=== PATIENT | male | born 1975 | race Caucasian/White ===

== ENCOUNTER 2020-04-12 17:29 | Emergency (ER) | payer OTHER, SELFPAY ==
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
[2020-04-12 17:44] VITALS: BP 118/76; PULSE 86; RESP 18; TEMP 36.6; O2SAT 100
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
== END 2020-04-12 18:50 | disposition home or self-care (01) ==
PROVIDERS: Emergency Provider Nurse Practitioner
DX: M54.2 Cervicalgia (principal); M54.5 Low back pain; Q22.5 Ebstein's anomaly
CPT/HCPCS: 72050; 72100; 99213; G0463

== ENCOUNTER 2020-07-11 10:25 | Emergency (ER) | payer OTHER, SELFPAY ==
[2020-07-11 10:33] VITALS: BP 98/66; PULSE 80; RESP 18; TEMP 36; O2SAT 100
--- NOTE | 2020-07-11 10:52 | ED.SKABFB ---
HPI - Skin/Abscess/Foreign Bdy General Chief complaint: Skin/Abscess/Foreign Body Stated complaint: rash on left arm Source: patient Mode of arrival: ambulatory Limitations: no limitations History of Present Illness HPI narrative: Patient is a 44-year-old male who presents with pruritic rash to the left arm x2 days. 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 He reports increased itching over the past day reports it seems to be spreading . MD complaint: rash Related Data Home Medications Medication Instructions Recorded Confirmed cetirizine [Zyrtec] 10 mg PO DAILY 04/12/20 07/11/20 lisinopril 2.5 mg PO DAILY 04/12/20 07/11/20 Medicinal Marijuana 07/11/20 Allergies Allergy/AdvReac Type Severity Reaction Status Date / Time acetaminophen Allergy Unknown Itching Verified 07/11/20 10:42 oxycodone Allergy Unknown Itching Verified 07/11/20 10:42 hydrocodone [From Vicodin] AdvReac Itching Verified 07/11/20 10:42 Animal Dander Allergy Mild NASAL Uncoded 12/06/18 19:50 CONGESTION Review of Systems Review of Systems: Narrative: CONSTITUTIONAL: Denies fever, chills, or sweats. EYES: Denies visual changes, redness, or discharge. ENT: Denies rhinorrhea, congestion, sore throat, or otalgia. CARDIOVASCULAR: Denies chest pain, palpitations, or edema. RESPIRATORY: Denies cough or dyspnea. GASTROINTESTINAL: Denies abdominal pain, nausea, vomiting, or diarrhea. GENITOURINARY: Denies dysuria or hematuria. SKIN: Pruritic rash to left arm MUSCULOSKELETAL: Denies back pain, joint pain, or myalgia. NEUROLOGIC: Denies headache, numbness, dizziness, or weakness. PSYCHIATRIC: Denies anxiety or depression. [facility] Past Medical History Medical History (Updated 07/11/20 @ 11:01 by ALVIN Shipman) Anxiety Depression Heart enlarged estein's anomaly PTSD (post-traumatic stress disorder) Seasonal allergies Social History Social History (Updated 07/11/20 @ 10:57 by ALVIN Shipman) Smoking status: Current every day smoker Tobacco type: cigarettes Alcohol intake: never Exam Narrative: Exam Narrative: GENERAL: Well-appearing, well-nourished, and in no acute distress. HEAD: Normocephalic, atraumatic. EYES: No redness or drainage. ENT: Mucous membranes pink and moist. CHEST: No respiratory distress. EXTREMITIES: Normal range of motion. SKIN: Multiple small raised areas of erythema with blisters to left inner arm, linear pattern NEURO: No focal deficits. Alert and oriented x3. Gait steady. PSYCH: Normal affect. No signs of depression or anxiety. Course Vital Signs Vital signs: Vital Signs Temperature 36.0 C L 07/11/20 10:33 Pulse Rate 80 07/11/20 10:33 Respiratory Rate 18 07/11/20 10:33 Blood Pressure 98/66 L 07/11/20 10:33 Pulse Oximetry 100 07/11/20 10:33 Temperature 36.0 C L 07/11/20 10:33 Pulse Rate 80 07/11/20 10:33 Respiratory Rate 18 07/11/20 10:33 Blood Pressure 98/66 L 07/11/20 10:33 Pulse Oximetry 100 07/11/20 10:33 MDM - Skin/Abscess/Foreign Bdy MDM Narrative Medical decision making narrative: Patient appears to have possible contact dermatitis. Cream to be given for comfort. Discussed with patient to follow-up with his PCP if symptoms persist. Patient is stable for discharge home with outpatient follow-up as discussed Differential Diagnosis Differential diagnosis: Likely urticaria, eczema, impetigo and contact dermatitis Critical Care Time Critical Care Time Critical Care Time: No Discharge Plan Discharge Clinical Impression: Contact dermatitis Patient Disposition: Home, Self-Care Condition: Stable Instructions: Antibiotic Form, Contact Dermatitis (DC) Additional Instructions: Please use cream as directed. You may also take Benadryl for itching. Follow-up with your PCP in 3 to 5 days if symptoms continue. Prescriptions: New triamcinolone acetonide 0.1 % cre
== END 2020-07-11 11:05 | disposition home or self-care (01) ==
PROVIDERS: Emergency Provider Nurse Practitioner
DX: L25.9 Unspecified contact dermatitis, unspecified cause (principal); F17.210 Nicotine dependence, cigarettes, uncomplicated; Q22.5 Ebstein's anomaly; I10 Essential (primary) hypertension
CPT/HCPCS: 99213; G0463

== ENCOUNTER 2021-06-07 13:14 | Emergency (ER) | payer OTHER, SELFPAY ==
[2021-06-07 14:41] VITALS: BP 101/74; PULSE 72; RESP 20; TEMP 36.3; O2SAT 100
--- NOTE | 2021-06-07 15:18 | ED.URI ---
HPI - URI/Sore Throat General Chief Complaint: Upper Respiratory Infection Stated Complaint: Runny Nose Time Seen by Provider: 06/07/21 15:09 Source: patient and RN notes reviewed Mode of arrival: ambulatory Limitations: no limitations History of Present Illness HPI Narrative: Patient presents today complaining of copious watery nasal discharge this morning. He came in for evaluation and is wondering if this means that he has a sinus infection. After the copious discharge he states his nasal congestion was resolved. He had been congestion for 5 days. He had taken Tylenol for his symptoms without relief. MD elicited complaint: rhinorrhea and nasal congestion Related Data Home Medications Medication Instructions Recorded Confirmed cetirizine [Zyrtec] 10 mg PO DAILY 04/12/20 06/07/21 lisinopril 2.5 mg PO DAILY 04/12/20 06/07/21 Allergies Allergy/AdvReac Type Severity Reaction Status Date / Time acetaminophen Allergy Unknown Itching Verified 06/07/21 15:14 oxycodone Allergy Unknown Itching Verified 06/07/21 15:14 hydrocodone [From Vicodin] AdvReac Itching Verified 06/07/21 15:14 Animal Dander Allergy Mild NASAL Uncoded 06/07/21 15:14 CONGESTION Review of Systems Review of Systems: CONSTITUTIONAL: Denies body aches, fever, chills, or sweats. EYES: Denies visual changes, redness, or discharge. ENT: Denies sore throat, or otalgia.+ Rhinorrhea, congestion CARDIOVASCULAR: Denies chest pain, palpitations, or edema. RESPIRATORY: Denies cough or dyspnea. GASTROINTESTINAL: Denies abdominal pain, nausea, vomiting, or diarrhea. GENITOURINARY: Denies dysuria or hematuria. SKIN: Denies rash, itching, or wounds. MUSCULOSKELETAL: Denies back pain, joint pain, or myalgia. NEUROLOGIC: Denies headache, numbness, tingling, or weakness. PSYCH: Denies depression or anxiety. [facility] Past Medical History Medical History Anxiety Depression Heart enlarged estein's anomaly PTSD (post-traumatic stress disorder) Seasonal allergies Social History Social History Smoking status: Current every day smoker Tobacco type: cigarettes Alcohol intake: never Comments At time of signature, I have reviewed and agree with nursing past medical, surgical, social and family history unless otherwise noted. Please see nursing chart for further information. There is no relevant family history pertinent to the presenting complaint Exam Narrative: GENERAL: Well-appearing, well-nourished, and in no acute distress. HEAD: Normocephalic, atraumatic. EYES: EOMI. No redness or drainage. Conjunctivae normal. ENT: Mucous membranes pink and moist. Nares clear. No rhinorrhea. TMs normal bilaterally. Throat normal. Uvula midline. NECK: Normal AROM. Supple. No lymphadenopathy. CHEST: No respiratory distress. Clear to auscultation. HEART: Regular rate and rhythm. No murmur appreciated. Normal peripheral pulses. EXTREMITIES: Normal range of motion. No edema. SKIN: Warm, dry, no rash. Capillary refill normal. Normal skin turgor. NEURO: No focal deficits. Alert and oriented x3. Gait steady. PSYCH: Normal affect. No signs of depression or anxiety. Course Vital Signs Vital signs: Vital Signs Temperature 97.3 F L 06/07/21 14:41 Pulse Rate 72 06/07/21 14:41 Respiratory Rate 20 06/07/21 14:41 Blood Pressure 101/74 06/07/21 14:41 Pulse Oximetry 100 06/07/21 14:41 Temperature 97.3 F L 06/07/21 14:41 Pulse Rate 72 06/07/21 14:41 Respiratory Rate 20 06/07/21 14:41 Blood Pressure 101/74 06/07/21 14:41 Pulse Oximetry 100 06/07/21 14:41 Reviewed MDM - URI/Sore Throat Differential Diagnosis Differential diagnosis: Likely upper respiratory infection, sinusitis, viral infection and other (Rhinitis, environmental allergies) Critical Care Time Critical Care Time Critical Care Time: No Discharge Plan
== END 2021-06-07 15:35 | disposition home or self-care (01) ==
PROVIDERS: Emergency Provider Nurse Practitioner
DX: J00 Acute nasopharyngitis [common cold] (principal); F17.210 Nicotine dependence, cigarettes, uncomplicated; F41.9 Anxiety disorder, unspecified; F32.9 Major depressive disorder, single episode, unspecified; I51.7 Cardiomegaly
CPT/HCPCS: 99211; G0463

== ENCOUNTER 2022-01-23 16:33 | Emergency (ER) | payer OTHER, SELFPAY ==
[2022-01-23 16:36] VITALS: BP 127/85; PULSE 68; RESP 14; TEMP 36.4; O2SAT 100
--- NOTE | 2022-01-23 16:39 | ED.UPPEXIN ---
HPI - Extremity Injury (Upper) General Chief Complaint: Extremity Injury, Upper Stated Complaint: Right Hand Pain Time Seen by Provider: 01/23/22 16:39 Source: patient and RN notes reviewed History of Present Illness HPI narrative: Patient is a 46-year-old male who presents the urgent care with complaints of right hand pain. Patient states its been occurring for approximately 1 month. 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 Patient states that he also popped his knuckle approximately 1 month ago and noticed some increased swelling shortly after however the pain did relieve. Patient states he notices increased pain after working. Denies of any traumatic injury. Patient states that he has been taking Tylenol. No other acute complaints. No acute distress noted. Patient read the plan of care. Some parts of this dictation were generated by voice recognition software and may contain typographical and/or grammatical inaccuracies. Related Data Home Medications Medication Instructions Recorded Confirmed cetirizine [Zyrtec] 10 mg PO DAILY 04/12/20 01/23/22 lisinopril 2.5 mg PO DAILY 04/12/20 01/23/22 Allergies Allergy/AdvReac Type Severity Reaction Status Date / Time acetaminophen Allergy Unknown Itching Verified 01/23/22 16:55 oxycodone Allergy Unknown Itching Verified 01/23/22 16:55 hydrocodone [From Vicodin] AdvReac Itching Verified 01/23/22 16:55 Animal Dander Allergy Mild NASAL Uncoded 01/23/22 16:55 CONGESTION Review of Systems Review of Systems: CONSTITUTIONAL: Denies fever, chills, or sweats. EYES: Denies visual changes, redness, or discharge. ENT: Denies rhinorrhea, congestion, sore throat, or otalgia. CARDIOVASCULAR: Denies chest pain, palpitations, or edema. RESPIRATORY: Denies cough or dyspnea. GASTROINTESTINAL: Denies abdominal pain, nausea, vomiting, or diarrhea. GENITOURINARY: Denies dysuria or hematuria. SKIN: Denies rash or itching. MUSCULOSKELETAL: Reports of right hand pain over the index finger NEUROLOGIC: Denies headache, numbness, or weakness. All other systems reviewed are negative, except as documented in HPI. [facility] Past Medical History Medical History Anxiety Depression Heart enlarged estein's anomaly PTSD (post-traumatic stress disorder) Seasonal allergies Social History Social History Smoking status: Current every day smoker Tobacco type: cigarettes Alcohol intake: never Comments At the time of my signature, I reviewed and agree with the nursing past medical, surgical, social, and family history. There is no relevant family history pertinent to the patient complaint. Exam Narrative: GENERAL: This is a well-nourished, well-developed patient, in no apparent distress. HEAD: normocephalic, atraumatic. EYES: PERRL. Sclera clear/white. Vision is grossly intact. EARS: External ears normal NOSE: External nose normal with no obvious nasal discharge, nares without redness, no rhinorrhea. THROAT: Mucous membranes moist SKIN: warm, intact with no suspicious lesions or rash, good texture and turgor. NEURO: awake, alert, and oriented to person, place and time. There were no obvious focal neurologic abnormalities. 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 Very mild edema over the MCP of the right index finger with mild tenderness. Positive strong right radial pulse with capillary refill less than 2 seconds. Course Course Level of Care: Express Care Visit Vital Signs Vital signs: Vital Signs Temperature 97.6 F 01/23/22 16:36 Pulse Rate 68 01/23/22 16:36 Respiratory Rate 14 01/23/22 16:36 Blood Pressure 127/85 01/23/22 16:36 Pulse Oximetry 100 01/23/22 16:36 Temperature 97.6 F 01/23/22
== END 2022-01-23 17:06 | disposition home or self-care (01) ==
PROVIDERS: Emergency Provider Nurse Practitioner Family
DX: M77.8 Other enthesopathies, not elsewhere classified (principal)
CPT/HCPCS: 99213; G0463

== ENCOUNTER 2022-09-10 16:44 | Emergency (ER) | payer OTHER, SELFPAY ==
--- NOTE | ~2022-09-10 | XR_ITS ---
EXAM: XR toe 5th LT min 2V DATE: 09/10/2022 17:18 HISTORY: STUBBED TOE, BRUISING,PAIN . COMPARISON: None available. FINDINGS: Normal mineralization. No fracture or dislocation. No lytic or blastic lesion. Joint space s are maintained. No erosion or periosteal change. Soft tissues within normal limits. IMPRESSION: No acute osseous finding in the left fifth toe. Reviewed, dictated and finalized at location K. P SCIENTIST
[2022-09-10 17:07] VITALS: BP 115/80; PULSE 73; RESP 20; TEMP 36.9; O2SAT 100
[2022-09-10 17:08] VITALS: BP 115/80; PULSE 73; RESP 20; TEMP 36.9; O2SAT 100
--- NOTE | 2022-09-10 17:23 | ED.LOWEXIN ---
HPI - Extremity Injury (Lower) General Chief Complaint: Extremity Injury, Lower Stated Complaint: Left Foot Injury Time Seen by Provider: 09/10/22 17:24 History of Present Illness HPI Narrative: patient presents with left little toe injury that occurred last night. bruising noted to toe. no deformity and no open areas. Related Data Home Medications Medication Instructions Recorded Confirmed cetirizine 10 mg capsule (Zyrtec) 10 mg PO DAILY 04/12/20 09/10/22 alprazolam 0.5 mg tablet 0.5 mg PO BID PRN Anxiety 09/10/22 09/10/22 ergocalciferol (vitamin D2) 1,250 1,250 mcg PO WEEKLY 09/10/22 09/10/22 mcg (50,000 unit) capsule lisinopril 10 mg tablet 10 mg PO DAILY 09/10/22 09/10/22 Allergies Allergy/AdvReac Type Severity Reaction Status Date / Time acetaminophen Allergy Unknown Itching Verified 09/10/22 17:05 oxycodone Allergy Unknown Itching Verified 09/10/22 17:05 hydrocodone [From Vicodin] AdvReac Unknown Itching Verified 09/10/22 17:05 Review of Systems Review of Systems: CONSTITUTIONAL: Denies fever, chills, or sweats. EYES: Denies visual changes, redness, or discharge. ENT: Denies rhinorrhea, congestion, sore throat, or otalgia. CARDIOVASCULAR: Denies chest pain, palpitations, or edema. RESPIRATORY: Denies cough or dyspnea. GASTROINTESTINAL: Denies abdominal pain, nausea, vomiting, or diarrhea. GENITOURINARY: Denies dysuria or hematuria. SKIN: Denies rash or itching. MUSCULOSKELETAL: Denies back pain, joint pain, or myalgia. NEUROLOGIC: Denies headache, numbness, or weakness. PSYCHIATRIC: Denies anxiety or depression. [facility] Past Medical History Medical History Anxiety Depression Heart enlarged estein's anomaly PTSD (post-traumatic stress disorder) Seasonal allergies Social History Social History Smoking status: Current every day smoker Tobacco type: cigarettes Alcohol intake: never Comments At time of signature, agree with nursing past medical, surgical, social and family history. There is no relevant family history pertinent to the presenting complaint Exam Narrative: GENERAL: Well-appearing, well-nourished, and in no acute distress. HEAD: Normocephalic, atraumatic. EYES: PERRLA and EOMI. ENT: Nares clear, no rhinorrhea or epistaxis. Mucous membranes moist. NECK: Supple. CHEST: Clear to auscultation. No respiratory distress. HEART: Regular rate and rhythm. No murmur heard. Normal peripheral pulses. ABDOMEN: Soft, nontender, nondistended, normal active bowel sounds. EXTREMITIES: Normal range of motion. No edema. ANKLE EXAM SKIN INTACT. NORMAL DP PULSE, NORMAL CAP REFILL. NORMAL SENSATION.bruising to right little toe SKIN: Warm, dry, no rash. NEURO: No focal deficits. Alert and oriented x3. Hankinson Coma Scale Eye Opening: Spontaneous 4 Hankinson Coma Scale Motor: Obeys Commands 6 [place] Coma Scale Verbal: Oriented 5 Hankinson Coma Scale Total 15 Course Course Level of Care: Express Care Visit Vital Signs Vital signs: Vital Signs Temperature 36.9 C 09/10/22 17:07 Pulse Rate 73 09/10/22 17:07 Respiratory Rate 20 09/10/22 17:07 Blood Pressure 115/80 09/10/22 17:07 Pulse Oximetry 100 09/10/22 17:07 Oxygen Delivery Room Air 09/10/22 17:07 Temperature 36.9 C 09/10/22 17:08 Pulse Rate 73 09/10/22 17:08 Respiratory Rate 20 09/10/22 17:08 Blood Pressure 115/80 09/10/22 17:08 Pulse Oximetry 100 09/10/22 17:08 Oxygen Delivery Room Air 09/10/22 17:08 MDM - Extremity Injury (Lower) Differential Diagnosis Differential diagnosis: Likely ankle sprain and strain, acute internal derangement of knee, fracture of femur, fracture of hip, puncture wound of foot, fracture of toe and ankle fracture Imaging Data My impression: No acute osseous finding in the left fifth toe. Radiologist's impression: No acute osseous finding in the l
== END 2022-09-10 17:45 | disposition home or self-care (01) ==
PROVIDERS: Emergency Provider Nurse Practitioner Family; PCP Family Medicine
DX: S90.122A Contusion of left lesser toe(s) without damage to nail, initial encounter (principal); T14.90XA Injury, unspecified, initial encounter; F41.8 Other specified anxiety disorders; F17.210 Nicotine dependence, cigarettes, uncomplicated
CPT/HCPCS: 73660; 99213; G0463